=== PATIENT | female | born 1930 | race Caucasian/White ===

== ENCOUNTER 2018-02-02 06:44 | Observation (INO) | payer MEDICARE, OTHER ==
[2018-02-02 06:44] VITALS: BMI 27.1
[2018-02-02 07:42] LABS: BASO % 0.6 % (0.0-2.0); EOS # 0.2 K/uL (0.0-0.7); HEMOGLOBIN 12.3 g/dL (11.0-16.0); LYMPH # 2.5 K/uL (1.0-4.3); LYMPH % 50.9 % (20.0-40.0); MEAN CELL VOLUME 84.6 fL (81.0-99.0); MEAN CORPUSCULAR HEMOGLOBIN 28.1 pg (27.0-31.0); MEAN CORPUSCULAR HGB CONC 33.2 g/dL (33.0-37.0); MEAN PLATELET VOLUME 7.7 fL (7.2-11.7); MONO # 0.4 K/uL (0.0-0.8); MONO % 7.4 % (0.0-10.0); NEUT # 1.8 K/uL (1.8-7.0); NEUT % 36.1 % (50.0-75.0); RBC 4.38 Mil/uL (3.80-5.20); RED CELL DISTRIBUTION WIDTH 14.6 % (11.5-14.5); WHITE BLOOD COUNT 4.9 K/uL (4.8-10.8)
[2018-02-02] MEDS: Sodium Chloride 0.9% 1,000 ML IV SCH (07:52)
[2018-02-02] MEDS ORDERED: Sodium Chloride 0.9% 1,000 ML ONE (07:53)
[2018-02-02 07:57] LABS: ALB/GLOB RATIO 1.4 (1.0-2.1); ALBUMIN 4.4 g/dL (3.5-5.0); ALT/SGPT 31 U/L (9-52); AST/SGOT 40 U/L (14-36); BLOOD UREA NITROGEN 15 mg/dL (7-17); CALCIUM 9.3 mg/dl (8.6-10.4); GFR AFRICAN-AMERICAN > 60; GFR NON-AFRICAN AMERICAN > 60
--- NOTE | 2018-02-02 08:02 | C.PDOC ---
History Of Present Illness 87 yo female with PMH HTN ,high chol, hypothyroid and pacemaker c/o dizziness that started this morning. Pt notes when she was laying in bed, she felt well, then she got up to go to the bathroom and felt "unsteady." Usually uses the walker to ambulate. Also c/o total body weakness. Denies fall or sensation as the room is spinning. Denies chest pain, sob, fever, abdominal pain, n/v, or headache. Time Seen by Provider: 02/02/18 07:14 Chief Complaint (Nursing): Dizziness/Lightheaded History Per: Patient History/Exam Limitations: no limitations Onset/Duration Of Symptoms: Hrs Current Symptoms Are (Timing): Still Present Activity At Onset Of Symptoms: Had Just Stood up Additional History Per: Patient Past Medical History Reviewed: Historical Data, Nursing Documentation, Vital Signs Vital Signs: Last Vital Signs Temp 98.1 F 02/02/18 07:10 Pulse 60 02/02/18 15:39 Resp 16 02/02/18 15:39 BP 124/56 L 02/02/18 15:39 Pulse Ox 95 02/02/18 15:39 - Medical History PMH: HTN, Hyperthyroidism Surgical History: Pacemaker - [facility] Procedures INITIAL INSERT TRANS LEADS INTO [employer] (09/17/13) INITIAL INSERTION OF DUAL-CHAMBER DEVICE (09/17/13) Family History: States: Unknown Family Hx - Social History Hx Tobacco Use: No Hx Alcohol Use: No Hx Substance Use: No - Immunization History Hx Influenza Vaccination: No Hx Pneumococcal Vaccination: No Review Of Systems Constitutional: Positive for: Weakness. Negative for: Fever, Chills Cardiovascular: Negative for: Chest Pain Respiratory: Negative for: Shortness of Breath Gastrointestinal: Negative for: Nausea, Vomiting, Abdominal Pain Neurological: Positive for: Dizziness. Negative for: Headache Physical Exam - Physical Exam Appears: Non-toxic, No Acute Distress Skin: Normal Color, Warm, Dry Head: Atraumatic, Normacephalic Eye(s): bilateral: Normal Inspection, EOMI Ear(s): Bilateral: Normal Nose: Normal Oral Mucosa: Moist Neck: Normal ROM, Supple Chest: Symmetrical, No Deformity, No Tenderness Cardiovascular: Rhythm Regular Respiratory: Normal Breath Sounds, No Rales, No Rhonchi, No Wheezing Gastrointestinal/Abdominal: Soft, No Tenderness, No Guarding, No Rebound Extremity: Normal ROM, Capillary Refill (less than 2 seconds ) Neurological/Psych: Oriented x3, Normal Speech, Normal Cognition, Normal Cranial Nerves, No Cerebellar Signs ED Course And Treatment - Laboratory Results Result Diagrams: 02/02/18 07:37 02/02/18 07:37 ECG: Interpreted By Me, Viewed By Me ECG Rhythm: A Paced Rate From EC O2 Sat by Pulse Oximetry: 97 (on RA) Pulse Ox Interpretation: Normal - CT Scan/US CT head Other Rad Studies (CT/US): Read By Radiologist, Radiology Report Reviewed CT/US Interpretation: PROCEDURE: CT HEAD WITHOUT CONTRAST. HISTORY: R/O Bleed. COMPARISON: None available. TECHNIQUE: Axial computed tomography images were obtained through the head/brain without intravenous contrast. Radiation dose: Total exam DLP = 967.26 mGy-cm. This CT exam was performed using one or more of the following dose reduction techniques: Automated exposure control, adjustment of the mA and/or kV according to patient size, and/ or use of iterative reconstruction technique. FINDINGS: HEMORRHAGE: No intracranial hemorrhage. BRAIN: There are moderate chronic microangiopathic changes. There is no mass, mass effect or abnormal extra-axial fluid collection. There is no territorial infarction. There are coarse atherosclerotic calcifications in the cavernous carotid arteries. VENTRICLES: There is mild age-related global parenchymal volume loss and proportionate enlargement of the ventricles and cortical sulci. CALVARIUM: The skull base and calvarium are normal. PARANASAL SINUSES: There is moderate mucosal thickening in the right posterior ethmoid air cells. The remaining included paranasal sinuses are predominantly clear. MASTOID AIR CELLS: Bilateral mastoid air cells are underdeveloped. OTHER FINDINGS: None. IMPRESSION: No acute intracranial abnormality. Moderate chronic microangiopathic changes and mild age-related global parenchymal volume loss. Progress Note: On re-evaluation, patient states that she feels well while lying in bed. As patient attempted to ambulate, she reported feeling unsteady. Case discussed with patient's PMD, Dr. Ayala, who states he is out of town until and requests hospitalist admission. Case disucssed with Dr. De La Torre, who agreed upon plan and admission. Disposition - Disposition Disposition: HOME/ ROUTINE Disposition Time: 16:03 Condition: STABLE - Clinical Impression Clinical Impression: Dizziness, Near syncope - PA / STEM ROLLER OPERATOR / Resident Statement /DO has reviewed & agrees with the documentation as recorded. - Scribe Statement The provider has reviewed the documentation as recorded by the Scribe (Lisa Maguire) All medical record entries made by the Scribe were at my direction and personally dictated by me. I have reviewed the chart and agree that the record accurately reflects my personal performance of the history, physical exam, medical decision making, and the department course for this patient. I have also personally directed, reviewed, and agree with the discharge instructions and disposition.
[2018-02-02 08:04] LABS: URINE BACTERIA RARE (<OCC); URINE BILIRUBIN NEGATIVE (NEGATIVE); URINE BLOOD NEGATIVE (NEGATIVE); URINE CLARITY Clear (Clear); URINE COLOR Yellow (YELLOW); URINE GLUCOSE (UA) NORMAL (Normal); URINE LEUKOCYTE ESTERASE TRACE Leu/uL (Negative); URINE PROTEIN NEGATIVE (NEGATIVE); URINE UROBILINOGEN NORMAL mg/dL (0.2-1.0)
[2018-02-02 08:08] LABS: B-TYPE NATRIURETIC PEPTIDE 156 pg/mL (0-900); CK-MB 0.77 ng/mL (0.0-3.38)
--- NOTE | 2018-02-02 09:42 | CT ---
PROCEDURE: CT HEAD WITHOUT CONTRAST. HISTORY: R/O Bleed COMPARISON: None available. TECHNIQUE: Axial computed tomography images were obtained through the head/brain without intravenous contrast. Radiation dose: Total exam DLP = 967.26 mGy-cm. This CT exam was performed using one or more of the following dose reduction techniques: Automated exposure control, adjustment of the mA and/or kV according to patient size, and/or use of iterative reconstruction technique. FINDINGS: HEMORRHAGE: No intracranial hemorrhage. BRAIN: There are moderate chronic microangiopathic changes. There is no mass, mass effect or abnormal extra-axial fluid collection. There is no territorial infarction. There are coarse atherosclerotic calcifications in the cavernous carotid arteries. VENTRICLES: There is mild age-related global parenchymal volume loss and proportionate enlargement of the ventricles and cortical sulci. CALVARIUM: The skull base and calvarium are normal. PARANASAL SINUSES: There is moderate mucosal thickening in the right posterior ethmoid air cells. The remaining included paranasal sinuses are predominantly clear. MASTOID AIR CELLS: Bilateral mastoid air cells are underdeveloped. OTHER FINDINGS: None. IMPRESSION: No acute intracranial abnormality. Moderate chronic microangiopathic changes and mild age-related global parenchymal volume loss.
--- NOTE | 2018-02-02 14:05 | CP.PCM.HP ---
<Mickie Herrera - Last Filed: 02/02/18 17:10> History of Present Illness - History of Present Illness History of Present Illness: Patient was seen and examined in ED Bed 4 at approximately 11:35AM. Patient states that she does NOT want to be intubated in the event of an emergency. She would like CPR to be performed. Patient is not sure if she has an official advanced directive or power of immigration attorney, but states that her primary, Dr. Ayala , would know. Her emergency contact is her friend Gage Owen. He can be reached at [phone]. CC: dizziness 87 year old female with past medical history significant for HTN, Hypercholesterolemia, Pacemaker, Hypothyroidism and Osteoarthritis presents with complaints of dizziness and disorientation . Patient states that symptoms began earlier this morning at 5am when patient arose from sleep to go to the bathroom. Patient states that she used her "Rollator" (rolling walker with a seat) ambulatory device however she felt dizzy . She also experienced transient chest discomfort. Patient states that this was not chest pain, but rather pressure. She states that she was unsure who to contact since she lives at home - and thus she decided to call 911 around 6am. Patient states that her symptoms have now resolved. She states that she occasionally feels tired after 2-3 long blocks of ambulation. She uses one pillow to sleep at night. She denies palpitations, dyspnea, fevers, chills, recent sickness, nausea, vomiting, or headaches at this time. PMHx- as stated above PSHx- Pacemaker placement x2 in 2013. ( Pacemaker had to be removed, assessed and then another one was inserted. Fam Hx- Patient's mother in childbirth. Patient is not aware of any medical conditions. Medications- Levothyroxine 75 mcg daily, Losartan 50 mg daily, Bisoprolol 5 mg daily, Pepcid 20 mg PO daily, Plavix 75 mg daily and Lipitor 20 mg daily Social- denies alcohol, tobacco or illicit drug use Allergies- NKDA PMD: Dr. Ayala Vegetable Handler- She sees a Vegetable Handler located in [place], [place] Present on Admission - Present on Admission Any Indicators Present on Admission: No Review of Systems - Constitutional Constitutional: absent: Chills, Fever, Headache - EENT Eyes: absent: Blurred Vision, Change in Vision Ears: absent: Decreased Hearing, Ear Discharge Nose/Mouth/Throat: absent: Nasal Congestion, Nasal Discharge - Cardiovascular Cardiovascular: Lightheadedness, Other (near-syncope). absent: Palpitations - Respiratory Respiratory: absent: Cough, Dyspnea - Gastrointestinal Gastrointestinal: absent: Nausea, Vomiting - Musculoskeletal Musculoskeletal: absent: Back Pain, Muscle Weakness - Integumentary Integumentary: Swelling. absent: Dry Skin, Rash - Neurological Neurological: absent: Headaches Past Patient History - Past Social History Smoking Status: Never Smoked Alcohol: None Drugs: Denies Home Situation {Lives}: Alone - CARDIAC Hx Hypertension: Yes Hx Pacemaker: Yes - ENDOCRINE/METABOLIC Hx Hyperthyroidism: Yes - PSYCHIATRIC Hx Substance Use: No - SURGICAL HISTORY Hx Surgeries: Yes Hx Orthopedic Surgery: Yes (Lt. ankle fx) Other/Comment: pacemaker implant - ANESTHESIA Hx Anesthesia: Yes Hx Anesthesia Reactions: No Meds Allergies/Adverse Reactions: Allergies Allergy/AdvReac Type Severity Reaction Status Date / Time No Known Allergies Allergy Verified 02/02/18 07:08 Physical Exam - Constitutional Appears: Non-toxic, No Acute Distress - Head Exam Head Exam: ATRAUMATIC, NORMAL INSPECTION - Eye Exam Eye Exam: EOMI Additional comments: arcus senilis, clouding of the iris - ENT Exam ENT Exam: Mucous Membranes Moist - Neck Exam Neck exam: Positive for: Full Rom - Respiratory Exam Respiratory Exam: NORMAL BREATHING PATTERN - Cardiovascular Exam Cardiovascular Exam: +S1, +S2. absent: Tachycardia - GI/Abdominal Exam GI & Abdominal Exam: Normal Bowel Sounds, Soft. absent: Bruit, Distended, Guarding, Tenderness - Extremities Exam Extremities exam: Positive for: full ROM, pedal edema (trace, left slightly larger than right, some tenderness to palpation ( left)) - Back Exam Back exam: FULL ROM - Neurological Exam Neurological exam: Alert, CN II-XII Intact, Oriented x3 - Expanded Neurological Exam Expanded Patient oriented to: person, place, time Cranial nerves: EOM's Intact: Normal, Facial Sensation: Normal Cerebellar Function: Finger to Nose: Normal - Psychiatric Exam Psychiatric exam: Normal Affect, Normal Mood - Skin Skin Exam: Dry, Normal Color, Warm Results - Vital Signs Recent Vital Signs: Last Vital Signs Temp 98.1 F 02/02/18 07:10 Pulse 60 02/02/18 12:49 Resp 18 02/02/18 12:49 BP 146/60 02/02/18 12:49 Pulse Ox 97 02/02/18 12:49 - Labs Result Diagrams: 02/02/18 07:37 02/02/18 07:37 Labs: Laboratory Results - last 24 hr 02/02/18 02/02/18 02/02/18 06:59 07:37 07:37 WBC 4.9 RBC 4.38 Hgb 12.3 Hct 37.0 MCV 84.6 MCH 28.1 MCHC 33.2 RDW 14.6 H Plt Count 193 MPV 7.7 Neut % (Auto) 36.1 L Lymph % (Auto) 50.9 H [place] % (Auto) 7.4 Eos % (Auto) 5.0 H Baso % (Auto) 0.6 Neut # (Auto) 1.8 Lymph # (Auto) 2.5 [place] # (Auto) 0.4 Eos # (Auto) 0.2 Baso # (Auto) 0.0 Sodium 145 Potassium 3.9 Chloride 105 Carbon Dioxide 28 Anion Gap 15 BUN 15 Creatinine 0.7 Est GFR ( Amer) > 60 Est GFR (Non-Af Amer) > 60 POC Glucose (mg/dL) 110 Random Glucose 112 H Calcium 9.3 Total Bilirubin 0.7 AST 40 H ALT 31 Alkaline Phosphatase 81 Total Creatine Kinase 31 CK-MB (Mass) 0.77 Troponin I < 0.0120 NT-Pro-B Natriuret Pep 156 Total Protein 7.6 Albumin 4.4 Globulin 3.1 Albumin/Globulin Ratio 1.4 Urine Color Urine Clarity Urine pH Ur Specific [place] Urine Protein Urine Glucose (UA) Urine Ketones Urine Blood Urine Nitrate Urine Bilirubin Urine Urobilinogen Ur Leukocyte Esterase Urine WBC (Auto) Urine RBC (Auto) Urine Bacteria 02/02/18 07:51 WBC RBC Hgb Hct MCV MCH MCHC RDW Plt Count MPV Neut % (Auto) Lymph % (Auto) [place] % (Auto) Eos % (Auto) Baso % (Auto) Neut # (Auto) Lymph # (Auto) [place] # (Auto) Eos # (Auto) Baso # (Auto) Sodium Potassium Chloride Carbon Dioxide Anion Gap BUN Creatinine Est GFR ( Amer) Est GFR (Non-Af Amer) POC Glucose (mg/dL) Random Glucose Calcium Total Bilirubin AST ALT Alkaline Phosphatase Total Creatine Kinase CK-MB (Mass) Troponin I NT-Pro-B Natriuret Pep Total Protein Albumin Globulin Albumin/Globulin Ratio Urine Color Yellow Urine Clarity Clear Urine pH 7.0 Ur Specific [place] 1.009 Urine Protein Negative Urine Glucose (UA) Normal Urine Ketones Negative Urine Blood Negative Urine Nitrate Negative Urine Bilirubin Negative Urine Urobilinogen Normal Ur Leukocyte Esterase Trace Urine WBC (Auto) 6 H Urine RBC (Auto) 1 Urine Bacteria Rare Assessment & Plan (1) Near syncope Assessment and Plan: Telemetry KISHOR 1 negative. Follow up KISHOR 2 and 3 EKG -paced rhythm. Possible axis deviation. F/U Echo. F/U Consult recommendations to Vegetable Handler Dr. Garcias. F/U orthostatics PT eval and treat, Fall risk protocol Head CT negative Status: Acute (2) Pacemaker Assessment and Plan: [employer] Cardiac pacemaker Model # [id number], Serial number [id number], Implant Date Sep 18, 2013. RA Lead was changed November 29, 2016 Will need to be interrogated. A call was placed to schedule interrogation. Awaiting response. Patient states that last interrogation was several months ago. She states that she was given a home monitoring/tracking device, which she never set up. Status: Acute (3) HTN (hypertension) Assessment and Plan: Will resume home meds: Losartan 50 mg PO daily and Bisoprolol 5 mg PO daily Heart Healthy Diet Monitor Status: Acute (4) Hypercholesteremia Assessment and Plan: Patient takes Lipitor 20 mg at home. NF here. Will begin Crestor 5 mg PO HS Will follow up Lipid panel and Hgb A1c Considerations for ASA 81 mg. Will begin Patient also takes Plavix- Unclear as to whether she has had stent placed in the past. Status: Acute (5) Left leg swelling Assessment and Plan: F/U venous dopplers SCDS contraindicated until DVT is ruled out Status: Acute (6) Hypothyroid Assessment and Plan: F/U TSH and Free T4 levels Continue Home medication Levothyroxine 75mcg Status: Chronic (7) Prophylactic measure Assessment and Plan: Heparin SC Q12 Pepcid 20 mg PO daily Status: Acute <Mary Jane De La Torre - Last Filed: 02/03/18 19:40> Results - Vital Signs Recent Vital Signs: Last Vital Signs Temp 98.2 F 02/03/18 15:00 Pulse 62 02/03/18 15:00 Resp 20 02/03/18 15:00 BP 161/72 H 02/03/18 15:00 Pulse Ox 95 02/03/18 15:00 - Labs Result Diagrams: 02/03/18 13:46 02/03/18 07:56 Labs: Laboratory Results - last 24 hr 02/02/18 02/03/18 02/03/18 21:59 07:56 07:56 WBC RBC Hgb Hct MCV MCH MCHC RDW Plt Count MPV Neut % (Auto) Lymph % (Auto) [place] % (Auto) Eos % (Auto) Baso % (Auto) Neut # (Auto) Lymph # (Auto) [place] # (Auto) Eos # (Auto) Baso # (Auto) Sodium 142 Potassium 4.7 Chloride 106 Carbon Dioxide 26 Anion Gap 14 BUN 15 Creatinine 0.7 Est GFR ( Amer) > 60 Est GFR (Non-Af Amer) > 60 Random Glucose 97 Calcium 8.9 Phosphorus 3.7 Magnesium 1.9 Total Bilirubin 0.8 AST 35 ALT 22 Alkaline Phosphatase 63 Total Creatine Kinase 45 CK-MB (Mass) 0.39 Troponin I < 0.0120 Total Protein 7.1 Albumin 4.0 Globulin 3.1 Albumin/Globulin Ratio 1.3 Triglycerides 90 D Cholesterol 144 LDL Cholesterol Direct 87 HDL Cholesterol 38 Free T4 1.26 TSH 3rd Generation 0.66 02/03/18 13:46 WBC 5.0 RBC 4.18 Hgb 11.9 Hct 35.4 MCV 84.7 MCH 28.3 MCHC 33.5 RDW 14.6 H Plt Count 218 MPV 7.6 Neut % (Auto) 41.6 L Lymph % (Auto) 47.0 H [place] % (Auto) 4.9 Eos % (Auto) 5.4 H Baso % (Auto) 1.1 Neut # (Auto) 2.1 Lymph # (Auto) 2.3 [place] # (Auto) 0.2 Eos # (Auto) 0.3 Baso # (Auto) 0.1 Sodium Potassium Chloride Carbon Dioxide Anion Gap BUN Creatinine Est GFR ( Amer) Est GFR (Non-Af Amer) Random Glucose Calcium Phosphorus Magnesium Total Bilirubin AST ALT Alkaline Phosphatase Total Creatine Kinase CK-MB (Mass) Troponin I Total Protein Albumin Globulin Albumin/Globulin Ratio Triglycerides Cholesterol LDL Cholesterol Direct HDL Cholesterol Free T4 TSH 3rd Generation Attending/Attestation - Attestation I have personally seen and examined this patient.: Yes I have fully participated in the care of the patient.: Yes I have reviewed all pertinent clinical information: Yes Notes (Text): patient was seen and examined with the resident in the ER. assessment and the plan discussed in detail.We will get pole peeler consult Pace maker interrogation and Echocardiography I agree with the resident's documentation
[2018-02-02 15:46] LABS: CK-MB 0.44 ng/mL (0.0-3.38)
--- NOTE | 2018-02-02 16:46 | VASCLAB ---
PROCEDURE: Left Lower Extremity Venous Duplex Exam. HISTORY: calf tenderness with mild swelling PRIORS: None. TECHNIQUE: Left common femoral, femoral, popliteal and posterior tibial, peroneal and great saphenous veins were evaluated. Flow was assessed with color Doppler, compressibility, assessment of phasic flow and augmentation response. Report prepared by Janie Terry, REYNA, RVS FINDINGS: LEFT: 1. Common Femoral Vein: 1.1. Compressibility - Fully compressible: Thrombus - None : Flow - Phasic: Augmentation -Normal: Reflux - None. 2. Femoral Vein: 2.1. Compressibility - Fully compressible: Thrombus - None: Flow - Phasic: Augmentation -Normal: Reflux - None. 3. Popliteal Vein: 3.1. Compressibility - Fully compressible: Thrombus - None: Flow - Phasic: Augmentation -Normal: Reflux - None. 4. Posterior Tibial Vein: 4.1. Compressibility - Fully compressible: Thrombus - None: Flow - Phasic: Augmentation -Normal: Reflux - None. 5. Peroneal Vein: 5.1. Compressibility - Fully compressible: Thrombus - None: Flow - Phasic: Augmentation -Normal: Reflux - None. 6. Great Saphenous Vein: 6.1. Compressibility - Fully compressible: Thrombus - None: Flow - Phasic: Augmentation - Normal: Reflux - None. OTHER FINDINGS: IMPRESSION: No evidence of deep or superficial vein thrombosis of the left lower extremity with excellent venous flow. Normal valve function noted of the left side. Normal venous flow noted in the right common femoral vein.
[2018-02-02 17:39] VITALS: RESP 20
[2018-02-02 22:48] LABS: CK-MB 0.39 ng/mL (0.0-3.38)
--- NOTE | 2018-02-02 23:42 | CP.PCM.CON ---
History of Present Illness - History of Present Illness History of Present Illness: Cardiology/EP consult Re; Dizziness Pacemaker evaluation 87 year old admitted with history of dizziness early in am associated with chest discomfort without syncope or diaphoresis No history of dyspnea palpitations vertigo focal neurological symptoms Past Medical History Systemic hypertension Hyperlipidemia Pacemaker implant: indications unclear; follows up with a resort manager Luis Daniel Past surgery: pacemaker implant Exam No distress Afebrile Normal venous pressures Clear lungs Pacemaker site unremarkable (left pectoral region) Normal heart sounds Abdomen: soft No edema DP +=+ Alert and oriented x 3 normal motor function EKG: AV sequential pacing Labs: reviewed Past Patient History - Past Social History Smoking Status: Never Smoked Alcohol: None Drugs: Denies Home Situation {Lives}: Alone - CARDIAC Hx Hypertension: Yes Hx Pacemaker: Yes - ENDOCRINE/METABOLIC Hx Hyperthyroidism: Yes - PSYCHIATRIC Hx Substance Use: No - SURGICAL HISTORY Hx Surgeries: Yes Hx Orthopedic Surgery: Yes (Lt. ankle fx) Other/Comment: pacemaker implant - ANESTHESIA Hx Anesthesia: Yes Hx Anesthesia Reactions: No Meds Allergies/Adverse Reactions: Allergies Allergy/AdvReac Type Severity Reaction Status Date / Time No Known Allergies Allergy Verified 02/02/18 07:08 - Medications Medications: Current Medications Aspirin (Ecotrin) 81 mg PO DAILY [facility] Bisoprolol Fumarate (Zebeta) 5 mg PO DAILY [facility] Last Admin: 02/02/18 15:40 Dose: 5 mg Clopidogrel Bisulfate (Plavix) 75 mg PO DAILY [facility] Famotidine (Pepcid) 20 mg PO DAILY [facility] Heparin Sodium (Porcine) (Heparin) 5,000 units SC Q12 [facility] Last Admin: 02/02/18 21:05 Dose: 5,000 units Levothyroxine Sodium (Synthroid) 75 mcg PO DAILY@0630 [facility] Losartan Potassium (Cozaar) 50 mg PO DAILY [facility] Last Admin: 02/02/18 15:40 Dose: 50 mg Rosuvastatin Calcium (Crestor) 5 mg PO HS [facility] Last Admin: 02/02/18 21:05 Dose: 5 mg Results - Vital Signs Recent Vital Signs: Last Vital Signs Temp 98.0 F 02/02/18 18:30 Pulse 65 02/02/18 18:30 Resp 20 02/02/18 18:30 BP 138/73 02/02/18 18:30 Pulse Ox 95 02/02/18 18:45 - Labs Result Diagrams: 06/24/18 07:48 02/04/18 07:48 Labs: Laboratory Results - last 24 hr 02/02/18 02/02/18 02/02/18 06:59 07:37 07:37 WBC 4.9 RBC 4.38 Hgb 12.3 Hct 37.0 MCV 84.6 MCH 28.1 MCHC 33.2 RDW 14.6 H Plt Count 193 MPV 7.7 Neut % (Auto) 36.1 L Lymph % (Auto) 50.9 H [place] % (Auto) 7.4 Eos % (Auto) 5.0 H Baso % (Auto) 0.6 Neut # (Auto) 1.8 Lymph # (Auto) 2.5 [place] # (Auto) 0.4 Eos # (Auto) 0.2 Baso # (Auto) 0.0 Sodium 145 Potassium 3.9 Chloride 105 Carbon Dioxide 28 Anion Gap 15 BUN 15 Creatinine 0.7 Est GFR ( Amer) > 60 Est GFR (Non-Af Amer) > 60 POC Glucose (mg/dL) 110 Random Glucose 112 H Calcium 9.3 Total Bilirubin 0.7 AST 40 H ALT 31 Alkaline Phosphatase 81 Total Creatine Kinase 31 CK-MB (Mass) 0.77 Troponin I < 0.0120 NT-Pro-B Natriuret Pep 156 Total Protein 7.6 Albumin 4.4 Globulin 3.1 Albumin/Globulin Ratio 1.4 Urine Color Urine Clarity Urine pH Ur Specific [place] Urine Protein Urine Glucose (UA) Urine Ketones Urine Blood Urine Nitrate Urine Bilirubin Urine Urobilinogen Ur Leukocyte Esterase Urine WBC (Auto) Urine RBC (Auto) Urine Bacteria 02/02/18 02/02/18 02/02/18 07:51 15:18 21:59 WBC RBC Hgb Hct MCV MCH MCHC RDW Plt Count MPV Neut % (Auto) Lymph % (Auto) [place] % (Auto) Eos % (Auto) Baso % (Auto) Neut # (Auto) Lymph # (Auto) [place] # (Auto) Eos # (Auto) Baso # (Auto) Sodium Potassium Chloride Carbon Dioxide Anion Gap BUN Creatinine Est GFR ( Amer) Est GFR (Non-Af Amer) POC Glucose (mg/dL) Random Glucose Calcium Total Bilirubin AST ALT Alkaline Phosphatase Total Creatine Kinase 44 45 CK-MB (Mass) 0.44 0.39 Troponin I < 0.0120 < 0.0120 NT-Pro-B Natriuret Pep Total Protein Albumin Globulin Albumin/Globulin Ratio Urine Color Yellow Urine Clarity Clear Urine pH 7.0 Ur Specific [place] 1.009 Urine Protein Negative Urine Glucose (UA) Normal Urine Ketones Negative Urine Blood Negative Urine Nitrate Negative Urine Bilirubin Negative Urine Urobilinogen Normal Ur Leukocyte Esterase Trace Urine WBC (Auto) 6 H Urine RBC (Auto) 1 Urine Bacteria Rare Assessment & Plan - Assessment and Plan (Free Text) Assessment: Ms. Pimentel presented with dizziness on a background of a permanent pacemaker implant (2013); EKG suggests complete dependance on the device; the duration does not suggest a generator failure; a tachyarrhythmia needs exclusion Plan: Device interrogation Continue monitoring Echocardiogram Records from Patients resort manager
[2018-02-03] MEDS: Levothyroxine 75 MCG TAB PO SCH (05:57)
[2018-02-03 08:24] LABS: ALB/GLOB RATIO 1.3 (1.0-2.1); ALT/SGPT 22 U/L (9-52); AST/SGOT 35 U/L (14-36); BLOOD UREA NITROGEN 15 mg/dL (7-17); CALCIUM 8.9 mg/dl (8.6-10.4); GFR AFRICAN-AMERICAN > 60; GFR NON-AFRICAN AMERICAN > 60; HDL CHOLESTEROL 38 mg/dL (30-70)
[2018-02-03 08:32] LABS: LDL CHOLESTEROL 87 mg/dL (0-129)
--- NOTE | 2018-02-03 09:05 | CP.PCM.PN ---
<Gee Swanson - Last Filed: 02/03/18 18:02> Subjective - Date & Time of Evaluation Date of Evaluation: 02/03/18 Time of Evaluation: 09:45 - Subjective Subjective: PGY-[address] De La Torre. No acute events noted overnight. Did not offer any complaints. Denied dizziness or chest pain/discomfort. Denied palpitations. Stated she felt as if she had more energy today compared to yesterday. Objective - Vital Signs/Intake and Output Vital Signs (last 24 hours): Temp Pulse Resp BP Pulse Ox 98.1 F 61 20 128/71 95 02/03/18 07:15 02/03/18 07:15 02/03/18 07:15 02/03/18 07:15 02/03/18 08:36 - Medications Medications: Current Medications Aspirin (Ecotrin) 81 mg PO DAILY [facility] Bisoprolol Fumarate (Zebeta) 5 mg PO DAILY [facility] Last Admin: 02/02/18 15:40 Dose: 5 mg Clopidogrel Bisulfate (Plavix) 75 mg PO DAILY [facility] Famotidine (Pepcid) 20 mg PO DAILY [facility] Heparin Sodium (Porcine) (Heparin) 5,000 units SC Q12 [facility] Last Admin: 02/02/18 21:05 Dose: 5,000 units Levothyroxine Sodium (Synthroid) 75 mcg PO DAILY@0630 [facility] Last Admin: 02/03/18 05:57 Dose: 75 mcg Losartan Potassium (Cozaar) 50 mg PO DAILY [facility] Last Admin: 02/02/18 15:40 Dose: 50 mg Rosuvastatin Calcium (Crestor) 5 mg PO HS [facility] Last Admin: 02/02/18 21:05 Dose: 5 mg - Labs Labs: 02/02/18 07:37 02/03/18 07:56 - Additional Findings Additional findings: - Constitutional Appears: Non-toxic, No Acute Distress - Head Exam Head Exam: ATRAUMATIC, NORMAL INSPECTION - Eye Exam Eye Exam: EOMI Additional comments: arcus senilis, clouding of the iris - ENT Exam ENT Exam: Mucous Membranes Moist - Neck Exam Neck exam: Positive for: Full Rom - Respiratory Exam Respiratory Exam: NORMAL BREATHING PATTERN - Cardiovascular Exam Cardiovascular Exam: +S1, +S2. absent: Tachycardia - GI/Abdominal Exam GI & Abdominal Exam: Normal Bowel Sounds, Soft. absent: Bruit, Distended, Guarding, Tenderness - Extremities Exam Extremities exam: Positive for: full ROM, pedal edema (trace, left slightly larger than right, some tenderness to palpation ( left)) - Back Exam Back exam: FULL ROM - Neurological Exam Neurological exam: Alert, CN II-XII Intact, Oriented x3 - Expanded Neurological Exam Expanded Patient oriented to: person, place, time Cranial nerves: EOM's Intact: Normal, Facial Sensation: Normal Cerebellar Function: Finger to Nose: Normal - Psychiatric Exam Psychiatric exam: Normal Affect, Normal Mood - Skin Skin Exam: Dry, Normal Color, Warm Assessment and Plan - Assessment and Plan (Free Text) Assessment: (1) Near syncope Assessment and Plan: Telemetry KISHOR x3 negative. EKG -paced rhythm. Possible axis deviation. EKG suggests complete dependance on the device. F/U Echo. Consult Printed Forms Proofreader Dr. Garcias. * Device interrogation F/U orthostatics PT eval and treat, Fall risk protocol Head CT negative Status: Acute (2) Pacemaker Assessment and Plan: [employer] Cardiac pacemaker Model # [id number], Serial number [id number], Implant Date Sep 18, 2013. RA Lead was changed November 29, 2016 Will need to be interrogated. A call was placed to schedule interrogation. Awaiting response. Patient states that last interrogation was several months ago. She states that she was given a home monitoring/tracking device, which she never set up. Status: Acute (3) HTN (hypertension) Assessment and Plan: Will resume home meds: Losartan 50 mg PO daily and Bisoprolol 5 mg PO daily Heart Healthy Diet Monitor Status: Acute (4) Hypercholesteremia Assessment and Plan: Patient takes Lipitor 20 mg at home. NF here. Will begin Crestor 5 mg PO HS Lipid panel NORMAL F/U A1c Considerations for ASA 81 mg. Will begin Patient also takes Plavix- Unclear as to whether she has had stent placed in the past. Status: Acute (5) Left leg swelling Assessment and Plan: venous dopplers NORMAL findings SCDS contraindicated until DVT is ruled out Status: Acute (6) Hypothyroid Assessment and Plan: TSH and Free T4 levels NORMAL Continue Home medication Levothyroxine 75mcg Status: Chronic (7) Prophylactic measure Assessment and Plan: Heparin SC Q12 Pepcid 20 mg PO daily Status: Acute <Mary Jane De La Torre - Last Filed: 02/03/18 19:42> Objective - Vital Signs/Intake and Output Vital Signs (last 24 hours): Temp Pulse Resp BP Pulse Ox 98.2 F 62 20 161/72 H 95 02/03/18 15:00 02/03/18 15:00 02/03/18 15:00 02/03/18 15:00 02/03/18 15:00 Intake and Output: 02/03/18 02/04/18 18:59 06:59 Intake Total 480 Balance 480 - Medications Medications: Current Medications Aspirin (Ecotrin) 81 mg PO DAILY [facility] Last Admin: 02/03/18 09:32 Dose: 81 mg Bisoprolol Fumarate (Zebeta) 5 mg PO DAILY [facility] Last Admin: 02/03/18 12:15 Dose: 5 mg Clopidogrel Bisulfate (Plavix) 75 mg PO DAILY [facility] Last Admin: 02/03/18 09:31 Dose: 75 mg Famotidine (Pepcid) 20 mg PO DAILY [facility] Last Admin: 02/03/18 09:31 Dose: 20 mg Heparin Sodium (Porcine) (Heparin) 5,000 units SC Q12 [facility] Last Admin: 02/03/18 09:31 Dose: 5,000 units Levothyroxine Sodium (Synthroid) 75 mcg PO DAILY@0630 [facility] Last Admin: 02/03/18 05:57 Dose: 75 mcg Losartan Potassium (Cozaar) 50 mg PO DAILY [facility] Last Admin: 02/03/18 09:31 Dose: 50 mg Rosuvastatin Calcium (Crestor) 5 mg PO HS [facility] Last Admin: 02/02/18 21:05 Dose: 5 mg - Labs Labs: 02/03/18 13:46 02/03/18 07:56 Attending/Attestation - Attestation I have personally seen and examined this patient.: Yes I have fully participated in the care of the patient.: Yes I have reviewed all pertinent clinical information, including history, physical exam and plan: Yes Notes (Text): Seen and examined,no complain. Awaiting for pacemaker interrogation.Echo done .Pending report. we will follow She feels better.Less dizzy I agree with the resident's documentation of the assessment and the plan
[2018-02-03 13:51] LABS: BASO # 0.1 K/uL (0.0-0.2); BASO % 1.1 % (0.0-2.0); EOS # 0.3 K/uL (0.0-0.7); EOS % 5.4 % (0.0-4.0); HEMOGLOBIN 11.9 g/dL (11.0-16.0); LYMPH # 2.3 K/uL (1.0-4.3); MEAN CELL VOLUME 84.7 fL (81.0-99.0); MEAN CORPUSCULAR HEMOGLOBIN 28.3 pg (27.0-31.0); MEAN CORPUSCULAR HGB CONC 33.5 g/dL (33.0-37.0); MEAN PLATELET VOLUME 7.6 fL (7.2-11.7); MONO # 0.2 K/uL (0.0-0.8); MONO % 4.9 % (0.0-10.0); NEUT # 2.1 K/uL (1.8-7.0); NEUT % 41.6 % (50.0-75.0); NRBC % 0.1 % (0.0-2.0); RBC 4.18 Mil/uL (3.80-5.20); RED CELL DISTRIBUTION WIDTH 14.6 % (11.5-14.5)
[2018-02-04] MEDS: Levothyroxine 75 MCG TAB PO SCH (05:54)
[2018-02-04 08:00] LABS: BASO % 0.7 % (0.0-2.0); EOS # 0.3 K/uL (0.0-0.7); EOS % 6.8 % (0.0-4.0); HEMOGLOBIN 12.1 g/dL (11.0-16.0); LYMPH # 1.8 K/uL (1.0-4.3); LYMPH % 45.2 % (20.0-40.0); MEAN CELL VOLUME 83.6 fL (81.0-99.0); MEAN CORPUSCULAR HEMOGLOBIN 28.5 pg (27.0-31.0); MEAN CORPUSCULAR HGB CONC 34.1 g/dL (33.0-37.0); MEAN PLATELET VOLUME 7.5 fL (7.2-11.7); MONO # 0.3 K/uL (0.0-0.8); MONO % 6.9 % (0.0-10.0); NEUT # 1.6 K/uL (1.8-7.0); NEUT % 40.4 % (50.0-75.0); RBC 4.25 Mil/uL (3.80-5.20); RED CELL DISTRIBUTION WIDTH 14.5 % (11.5-14.5)
[2018-02-04 08:17] LABS: ALB/GLOB RATIO 1.4 (1.0-2.1); ALT/SGPT 33 U/L (9-52); AST/SGOT 23 U/L (14-36); BLOOD UREA NITROGEN 20 mg/dL (7-17); CALCIUM 9.2 mg/dl (8.6-10.4); GFR AFRICAN-AMERICAN > 60; GFR NON-AFRICAN AMERICAN > 60
--- NOTE | 2018-02-04 10:04 | CP.PCM.PN ---
Subjective - Date & Time of Evaluation Date of Evaluation: 02/04/18 Time of Evaluation: 15:30 - Subjective Subjective: PGY-[address] De La Torre. No acute events noted overnight. Patient denied palpitations, lightheadedness, dizziness. Stated nobody has come to interrogate her device. Objective - Vital Signs/Intake and Output Vital Signs (last 24 hours): Temp Pulse Resp BP Pulse Ox 98.0 F 62 20 132/66 96 02/04/18 08:51 02/04/18 08:51 02/04/18 08:51 02/04/18 08:51 02/04/18 08:51 Intake and Output: 02/04/18 02/04/18 06:59 18:59 Intake Total 480 Balance 480 - Medications Medications: Current Medications Aspirin (Ecotrin) 81 mg PO DAILY [facility] Last Admin: 02/03/18 09:32 Dose: 81 mg Bisoprolol Fumarate (Zebeta) 5 mg PO DAILY [facility] Last Admin: 02/03/18 12:15 Dose: 5 mg Clopidogrel Bisulfate (Plavix) 75 mg PO DAILY [facility] Last Admin: 02/03/18 09:31 Dose: 75 mg Famotidine (Pepcid) 20 mg PO DAILY [facility] Last Admin: 02/03/18 09:31 Dose: 20 mg Heparin Sodium (Porcine) (Heparin) 5,000 units SC Q12 [facility] Last Admin: 02/03/18 22:03 Dose: 5,000 units Levothyroxine Sodium (Synthroid) 75 mcg PO DAILY@0630 [facility] Last Admin: 02/04/18 05:54 Dose: 75 mcg Losartan Potassium (Cozaar) 50 mg PO DAILY [facility] Last Admin: 02/03/18 09:31 Dose: 50 mg Rosuvastatin Calcium (Crestor) 5 mg PO HS [facility] Last Admin: 02/03/18 22:03 Dose: 5 mg - Labs Labs: 02/04/18 07:48 02/04/18 07:48 - Additional Findings Additional findings: - Constitutional Appears: Non-toxic, No Acute Distress - Head Exam Head Exam: ATRAUMATIC, NORMAL INSPECTION - Eye Exam Eye Exam: EOMI Additional comments: arcus senilis, clouding of the iris - ENT Exam ENT Exam: Mucous Membranes Moist - Neck Exam Neck exam: Positive for: Full Rom - Respiratory Exam Respiratory Exam: NORMAL BREATHING PATTERN - Cardiovascular Exam Cardiovascular Exam: +S1, +S2. absent: Tachycardia - GI/Abdominal Exam GI & Abdominal Exam: Normal Bowel Sounds, Soft. absent: Bruit, Distended, Guarding, Tenderness - Extremities Exam Extremities exam: Positive for: full ROM, pedal edema (trace, left slightly larger than right, some tenderness to palpation ( left)) - Back Exam Back exam: FULL ROM - Neurological Exam Neurological exam: Alert, CN II-XII Intact, Oriented x3 - Expanded Neurological Exam Expanded Patient oriented to: person, place, time Cranial nerves: EOM's Intact: Normal, Facial Sensation: Normal Cerebellar Function: Finger to Nose: Normal - Psychiatric Exam Psychiatric exam: Normal Affect, Normal Mood - Skin Skin Exam: Dry, Normal Color, Warm Assessment and Plan - Assessment and Plan (Free Text) Assessment: (1) Near syncope Assessment and Plan: Telemetry KISHOR x3 negative. EKG -paced rhythm. Possible axis deviation. EKG suggests complete dependance on the device. Echo 02/04 - EF NORMAL, borderline to mild concentric LVH, left atrium mildly dilated Consult Food Mixer Repairer Dr. Garcias. * Device interrogation F/U orthostatics PT eval and treat, Fall risk protocol Head CT negative Status: Acute (2) Pacemaker Assessment and Plan: [employer] Cardiac pacemaker Model # [id number], Serial number [id number], Implant Date Sep 18, 2013. RA Lead was changed November 29, 2016 Will need to be interrogated. A call was placed to schedule interrogation. Awaiting response. Patient states that last interrogation was several months ago. She states that she was given a home monitoring/tracking device, which she never set up. Status: Acute (3) HTN (hypertension) Assessment and Plan: Will resume home meds: Losartan 50 mg PO daily and Bisoprolol 5 mg PO daily Heart Healthy Diet Monitor Status: Acute (4) Hypercholesteremia Assessment and Plan: Patient takes Lipitor 20 mg at home. NF here. Will begin Crestor 5 mg PO HS Lipid panel NORMAL F/U A1c ASA 81 mg Patient also takes Plavix, will continue- Unclear as to whether she has had stent placed in the past. Status: Acute (5) Left leg swelling, pain Assessment and Plan: venous dopplers NORMAL findings SCDS contraindicated Status: Acute (6) Hypothyroid Assessment and Plan: TSH and Free T4 levels NORMAL Continue Home medication Levothyroxine 75mcg Status: Chronic (7) Prophylactic measure Assessment and Plan: Heparin SC Q12 Pepcid 20 mg PO daily Status: Acute
--- NOTE | 2018-02-04 12:40 | CARD ---
APPROVED REPORT EXAM: Two-dimensional and M-mode echocardiogram with Doppler and color Doppler. Other Information Quality : GoodRhythm : INDICATION Congestive Heart Failure Surgery/Intervention Pacemaker: RISK FACTORS Hypertension Hyperlipidemia 2D DIMENSIONS IVSd1.5 (0.7-1.1cm)LVDd3.8 (3.9-5.9cm) LVOT Diameter1.8 (1.8-2.4cm)PWd1.3 (0.7-1.1cm) LVDs2.8 (2.5-4.0cm)FS (%) 27.1 % LVEF (%)53.6 (>50%) M-Mode DIMENSIONS Left Atrium (MM)4.51 (2.5-4.0cm)Aortic Root2.64 (2.2-3.7cm) Aortic Cusp Exc.1.56 (1.5-2.0cm) Mitral Valve MV E Neknmiso18.2cm/sMV A Svopaifm27.7cm/sE/A ratio0.6 TDI E/Lateral E'0.0E/Medial E'0.0 Tricuspid Valve TR Peak Otxnsaxt791vs/sTR Peak Gr.92cyUcEGNR95bvMw LEFT VENTRICLE The left ventricle is normal size. There is borderline to mild concentric left ventricular hypertrophy. The left ventricular function is normal. The left ventricular ejection fraction is within the normal range. No regional wall motion abnormalities noted. Transmitral Doppler flow pattern is Grade I-abnormal relaxation pattern. No left ventricle thrombus noted on this study. There is no ventricular septal defect visualized. There is no left ventricular aneurysm. There is no mass noted in the left ventricle. RIGHT VENTRICLE The right ventricle is normal size. There is normal right ventricular wall thickness. The right ventricular systolic function is normal. ATRIA The left atrium is mildly dilated. The right atrium size is normal. The interatrial septum is intact with no evidence for an atrial septal defect. AORTIC VALVE The aortic valve is normal in structure and function. No aortic regurgitation is present. There is no aortic valvular stenosis. There is no aortic valvular vegetation. MITRAL VALVE The mitral valve is normal in structure and function. There is no evidence of mitral valve prolapse. There is no mitral valve stenosis. There is no mitral valve regurgitation noted. TRICUSPID VALVE The tricuspid valve is normal in structure and function. There is mild tricuspid regurgitation. Right ventricular systolic pressure is estimated at 30-40 mmHg. There is no tricuspid valve prolapse or vegetation. There is no tricuspid valve stenosis. PULMONIC VALVE The pulmonary valve is normal in structure and function. There is no pulmonic valvular regurgitation. There is no pulmonic valvular stenosis. GREAT VESSELS The aortic root is normal in size. The ascending aorta is normal in size. The pulmonary artery is normal. The IVC is normal in size and collapses >50% with inspiration. PERICARDIAL EFFUSION The pericardium appears normal. There is no pleural effusion. <Conclusion> There is borderline to mild concentric left ventricular hypertrophy. The left ventricular function is normal. The left ventricular ejection fraction is within the normal range. The left atrium is mildly dilated. There is mild tricuspid regurgitation. Right ventricular systolic pressure is estimated at 30-40 mmHg.
--- NOTE | 2018-02-04 16:37 | CP.PCM.PN ---
Subjective - Date & Time of Evaluation Date of Evaluation: 02/04/18 Time of Evaluation: 16:33 - Subjective Subjective: No interval change since admission No recurrence of dizziness or syncope Sitting upright in chair Afebrile No distress Normal venous pressures Clear lungs No edema DP +=+ Tele: paced rhythm Pacemaker interrogation: reviewed Normal pace/sense/generator function; no events Objective - Vital Signs/Intake and Output Vital Signs (last 24 hours): Temp Pulse Resp BP Pulse Ox 98.0 F 62 20 132/66 96 02/04/18 08:51 02/04/18 08:51 02/04/18 08:51 02/04/18 08:51 02/04/18 08:51 Intake and Output: 02/04/18 02/04/18 06:59 18:59 Intake Total 480 300 Balance 480 300 - Medications Medications: Current Medications Aspirin (Ecotrin) 81 mg PO DAILY [facility] Last Admin: 02/04/18 10:45 Dose: 81 mg Bisoprolol Fumarate (Zebeta) 5 mg PO DAILY [facility] Last Admin: 02/04/18 10:46 Dose: 5 mg Clopidogrel Bisulfate (Plavix) 75 mg PO DAILY [facility] Last Admin: 02/04/18 10:45 Dose: 75 mg Famotidine (Pepcid) 20 mg PO DAILY [facility] Last Admin: 02/04/18 10:45 Dose: 20 mg Heparin Sodium (Porcine) (Heparin) 5,000 units SC Q12 [facility] Last Admin: 02/04/18 10:45 Dose: 5,000 units Levothyroxine Sodium (Synthroid) 75 mcg PO DAILY@0630 [facility] Last Admin: 02/04/18 05:54 Dose: 75 mcg Losartan Potassium (Cozaar) 50 mg PO DAILY [facility] Last Admin: 02/04/18 10:47 Dose: 50 mg Rosuvastatin Calcium (Crestor) 5 mg PO HS [facility] Last Admin: 02/03/18 22:03 Dose: 5 mg - Labs Labs: 02/04/18 07:48 02/04/18 07:48 Assessment and Plan - Assessment and Plan (Free Text) Assessment: Ms. 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
[2018-02-05] MEDS: Levothyroxine 75 MCG TAB PO SCH (06:14)
[2018-02-05 06:37] LABS: BASO % 0.6 % (0.0-2.0); EOS # 0.3 K/uL (0.0-0.7); HEMOGLOBIN 11.8 g/dL (11.0-16.0); LYMPH # 2.3 K/uL (1.0-4.3); LYMPH % 45.6 % (20.0-40.0); MEAN CORPUSCULAR HEMOGLOBIN 28.3 pg (27.0-31.0); MEAN CORPUSCULAR HGB CONC 33.7 g/dL (33.0-37.0); MEAN PLATELET VOLUME 7.5 fL (7.2-11.7); MONO # 0.4 K/uL (0.0-0.8); MONO % 7.8 % (0.0-10.0); RBC 4.18 Mil/uL (3.80-5.20); RED CELL DISTRIBUTION WIDTH 14.8 % (11.5-14.5)
[2018-02-05 07:41] LABS: ALB/GLOB RATIO 1.4 (1.0-2.1); ALBUMIN 3.9 g/dL (3.5-5.0); ALT/SGPT 35 U/L (9-52); AST/SGOT 31 U/L (14-36); BLOOD UREA NITROGEN 26 mg/dL (7-17); CALCIUM 9.2 mg/dl (8.6-10.4); GFR AFRICAN-AMERICAN > 60; GFR NON-AFRICAN AMERICAN 59
--- NOTE | 2018-02-05 18:10 | CP.PCM.PN ---
Subjective - Date & Time of Evaluation Date of Evaluation: 02/05/18 Time of Evaluation: 08:40 - Subjective Subjective: Medicine progress note (Hospitalist service covering for Dr. Ayala) Patient was seen and examined at bedside. Patient reports that she is doing well. Patient denies any chest pain, SOB, palpitations, dizziness. Patient is able to use her walker without difficulty to the bathroom. Objective - Vital Signs/Intake and Output Vital Signs (last 24 hours): Temp Pulse Resp BP Pulse Ox 97.5 F L 60 20 130/71 94 L 02/05/18 15:00 02/05/18 16:47 02/05/18 15:00 02/05/18 15:00 02/05/18 15:00 Intake and Output: 02/05/18 02/05/18 06:59 18:59 Intake Total 400 Balance 400 - Medications Medications: Current Medications Aspirin (Ecotrin) 81 mg PO DAILY [facility] Last Admin: 02/05/18 10:04 Dose: 81 mg Bisoprolol Fumarate (Zebeta) 5 mg PO DAILY [facility] Last Admin: 02/05/18 10:04 Dose: 5 mg Clopidogrel Bisulfate (Plavix) 75 mg PO DAILY [facility] Last Admin: 02/05/18 10:04 Dose: 75 mg Famotidine (Pepcid) 20 mg PO DAILY [facility] Last Admin: 02/05/18 10:04 Dose: 20 mg Heparin Sodium (Porcine) (Heparin) 5,000 units SC Q12 [facility] Last Admin: 02/05/18 10:05 Dose: 5,000 units Levothyroxine Sodium (Synthroid) 75 mcg PO DAILY@0630 [facility] Last Admin: 02/05/18 06:14 Dose: 75 mcg Losartan Potassium (Cozaar) 50 mg PO DAILY [facility] Last Admin: 02/05/18 10:04 Dose: 50 mg Rosuvastatin Calcium (Crestor) 5 mg PO HS [facility] Last Admin: 02/04/18 21:32 Dose: 5 mg - Labs Labs: 02/05/18 06:24 02/05/18 06:24 - Constitutional Appears: Well, No Acute Distress - Head Exam Head Exam: ATRAUMATIC, NORMAL INSPECTION - Eye Exam Eye Exam: EOMI, Normal appearance - ENT Exam ENT Exam: Mucous Membranes Moist - Respiratory Exam Respiratory Exam: Clear to Ausculation Bilateral, NORMAL BREATHING PATTERN. absent: Prolonged Expiratory Phase, Rhonchi, Wheezes, Respiratory Distress - Cardiovascular Exam Cardiovascular Exam: REGULAR RHYTHM, +S1, +S2 - GI/Abdominal Exam GI & Abdominal Exam: Soft, Normal Bowel Sounds. absent: Distended, Firm, Guarding, Rigid, Tenderness - Extremities Exam Extremities Exam: Normal Inspection. absent: Calf Tenderness, Pedal Edema - Neurological Exam Neurological Exam: Alert, Awake, Oriented x3 - Psychiatric Exam Psychiatric exam: Normal Affect, Normal Mood - Skin Skin Exam: Normal Color Assessment and Plan (1) Near syncope Assessment & Plan: Telemetry KISHOR x3 negative. EKG -paced rhythm. Possible axis deviation. EKG suggests complete dependance on the device. Echo 02/04 - EF NORMAL, borderline to mild concentric LVH, left atrium mildly dilated Consult Drapery Cutter Machine Dr. Garcias. * Device interrogation F/U orthostatics PT eval and treat, Fall risk protocol Head CT negative Status: Acute (2) Pacemaker Assessment & Plan: [employer] Cardiac pacemaker Model # [id number], Serial number [id number], Implant Date Sep 18, 2013. RA Lead was changed November 29, 2016 Will need to be interrogated. A call was placed to schedule interrogation. Awaiting response. Patient states that last interrogation was several months ago. She states that she was given a home monitoring/tracking device, which she never set up. Status: Acute (3) HTN (hypertension) Assessment & Plan: Will resume home meds: Losartan 50 mg PO daily and Bisoprolol 5 mg PO daily Heart Healthy Diet Monitor Status: Acute (4) Hypercholesteremia Assessment & Plan: Lipid Panel: TGL: 95, Chol: 176, LDL: 111 and HDL: 46 Hgb A1c : 7.7 Crestor 5mg PO HS Patient also takes Plavix, will continue- Unclear as to whether she has had stent placed in the past. ( Plavix 75mg PO daily) ASA 81mg PO daily Status: Acute (5) Diabetes Assessment & Plan: HgbA1C: 7.7 Accuchecks ISS: Low dose Status: Acute (6) Left leg swelling Assessment & Plan: venous dopplers NORMAL findings SCDS contraindicated Status: Acute (7) Hypothyroid Assessment & Plan: TSH and Free T4 levels NORMAL Continue Home medication Levothyroxine 75mcg Status: Chronic (8) Prophylactic measure Assessment & Plan: Heparin SC Q12 Pepcid 20 mg PO daily Service will be transferred back to Dr. Ayala, 02/06/18 All plans and management discussed with Dr. Crystal Status: Acute
[2018-02-06] MEDS: Levothyroxine 75 MCG TAB PO SCH (05:54)
[2018-02-06 06:30] LABS: BASO % 0.8 % (0.0-2.0); EOS # 0.4 K/uL (0.0-0.7); EOS % 6.6 % (0.0-4.0); HEMOGLOBIN 11.8 g/dL (11.0-16.0); LYMPH # 2.5 K/uL (1.0-4.3); LYMPH % 46.1 % (20.0-40.0); MEAN CELL VOLUME 83.7 fL (81.0-99.0); MEAN CORPUSCULAR HGB CONC 33.5 g/dL (33.0-37.0); MEAN PLATELET VOLUME 7.6 fL (7.2-11.7); MONO # 0.4 K/uL (0.0-0.8); MONO % 7.5 % (0.0-10.0); NEUT # 2.1 K/uL (1.8-7.0); NRBC % 0.3 % (0.0-2.0); RBC 4.2 Mil/uL (3.80-5.20); RED CELL DISTRIBUTION WIDTH 14.7 % (11.5-14.5); WHITE BLOOD COUNT 5.3 K/uL (4.8-10.8)
[2018-02-06 07:51] LABS: ALB/GLOB RATIO 1.3 (1.0-2.1); ALBUMIN 3.9 g/dL (3.5-5.0); ALT/SGPT 42 U/L (9-52); AST/SGOT 50 U/L (14-36); BLOOD UREA NITROGEN 20 mg/dL (7-17); CALCIUM 9.2 mg/dl (8.6-10.4); GFR AFRICAN-AMERICAN > 60; GFR NON-AFRICAN AMERICAN > 60
--- NOTE | 2018-02-06 12:13 | CARD ---
APPROVED REPORT EKG Measurement Heart [id number] <Conclusion> Atrial-paced rhythm Left axis deviation Nonspecific intraventricular block Inferior infarct, age undetermined Abnormal ECG
--- NOTE | 2018-02-06 12:19 | CP.PCM.PN ---
Subjective - Date & Time of Evaluation Date of Evaluation: 02/06/18 Time of Evaluation: 11:00 - Subjective Subjective: Patient seen today, awake, alert ox3, denies any chest pain, sob , dizziness, headache, palpitations oob ambulating to the hallway with rolling walker, without any problems Objective - Vital Signs/Intake and Output Vital Signs (last 24 hours): Temp Pulse Resp BP Pulse Ox 97.4 F L 61 20 127/67 95 02/06/18 07:20 02/06/18 07:20 02/06/18 07:20 02/06/18 07:20 02/06/18 07:20 - Medications Medications: Current Medications Aspirin (Ecotrin) 81 mg PO DAILY [facility] Last Admin: 02/06/18 09:13 Dose: 81 mg Bisoprolol Fumarate (Zebeta) 5 mg PO DAILY [facility] Last Admin: 02/06/18 09:14 Dose: 5 mg Clopidogrel Bisulfate (Plavix) 75 mg PO DAILY [facility] Last Admin: 02/06/18 09:13 Dose: 75 mg Famotidine (Pepcid) 20 mg PO DAILY [facility] Last Admin: 02/06/18 09:13 Dose: 20 mg Levothyroxine Sodium (Synthroid) 75 mcg PO DAILY@0630 [facility] Last Admin: 02/06/18 05:54 Dose: 75 mcg Losartan Potassium (Cozaar) 50 mg PO DAILY [facility] Last Admin: 02/06/18 09:13 Dose: 50 mg Rosuvastatin Calcium (Crestor) 5 mg PO HS [facility] Last Admin: 02/05/18 21:45 Dose: 5 mg - Labs Labs: 02/06/18 06:20 02/06/18 06:20 Assessment and Plan - Assessment and Plan (Free Text) Assessment: A/P 87 yo female with PMH HTN ,high chol, hypothyroid and pacemaker admitted with dizziness CT HEAD- Negative Pacemaker interrogated -Pacemaker interrogation showed normal pace sense parameters and no documented events seen by Dr. Ayala ,cleared fro discharge home today, resume all home medications and f/u with Dr. Ayala office in 1 week discharge plan discussed with patient who understands and agrees with plan
[2018-02-06 15:51] VITALS: BP 113/59; PULSE 67; TEMP 97.2; O2SAT 97
== END 2018-02-06 18:31 | disposition home or self-care (01) ==
LOC: C.ER 06:44 → C.9E 10:50 → C.6T 17:31
PROVIDERS: ADMIT Internal Medicine; ATTEND Internal Medicine
DX: R55 Syncope and collapse (principal); I10 Essential (primary) hypertension; E05.90 Thyrotoxicosis, unspecified without thyrotoxic crisis or storm; R07.89 Other chest pain; E78.5 Hyperlipidemia, unspecified; E03.9 Hypothyroidism, unspecified; Z79.02 Long term (current) use of antithrombotics/antiplatelets; E78.00 Pure hypercholesterolemia, unspecified; Z79.899 Other long term (current) drug therapy; Z79.82 Long term (current) use of aspirin; Z95.0 Presence of cardiac pacemaker
CPT/HCPCS: 36415; 70450; 80053; 80061; 81001; 82550; 82553; 82948; 83036; 83735; 83880; 84100; 84439; 84443; 84484; 85025; 93005; 93306; 93971; 96360; 96361; 97116; 97161; 99285; G0378; G8978; G8979; G8980; J1644; J7030